=== PATIENT | male | born 1935 | race Caucasian/White ===

== ENCOUNTER 2016-11-15 13:03 | Emergency (ER) | payer MEDICARE ==
--- NOTE | 2016-11-15 13:55 | ERRECORD ---
[facility] EMERGENCY RECORD HPI URI (22:03 [facility]) CHIEF COMPLAINT: Patient presents for evaluation of nasal congestion, Patient presents for evaluation of Pt with 4 days of nasal congestion. Swollen and unable to breath through his nose. Breathes easily through his mouth. No meds taken. HISTORIAN: History provided by patient. QUALITY: Pain is dull in nature. TIME COURSE: Gradual onset of symptoms, Symptoms are worsening, are constant. ASSOCIATED WITH: No associated chest pain, No associated chills, No associated fever, No associated headache, No associated shortness of breath. EXACERBATED BY: Patient's condition exacerbated by nothing. RELIEVED BY: Patient's condition relieved by nothing. ROS (22:05 JLOY) CONSTITUTIONAL: Historian denies chills, denies fever. EYES: Historian denies eye pain, denies eye redness, denies eye discharge. ENT: Historian reports rhinorrhea, denies sinus pain, denies sore throat. RESPIRATORY: Historian denies cough, denies shortness of breath. GI: Historian denies abdominal pain, denies nausea, denies vomiting. NEUROLOGIC: Historian denies dizziness, denies headache. PAST MEDICAL HISTORY MEDICAL HISTORY: Past medical history includes vascular disease history, CEREBRAL ANEURYSM, history of hypertension, which has been treated, includes cardiac history, coronary artery disease, cardiomyopathy, congestive heart failure, Treated with a pacemaker, treated with an AICD,. (13:16 [facility]) MALE SURGICAL HISTORY: CEREBRAL COIL HERNIA ORTHO, CEREBRAL COIL, Surgical history of hernia repair, Notes INGUINAL LEFT, Surgical history of orthopedic surgery, BOTH HIPS. (13:16 [facility]) SOCIAL HISTORY: Lives at home, alone, Patient denies alcohol use, Patient denies drug use, Patient has no smoking history,. (13:16 [facility]) NOTES: Nursing records reviewed, Agree with nursing records. (22:06 JLOY) KNOWN ALLERGIES No Known Drug Allergies CURRENT MEDICATIONS (13:11 [facility]) carvedilol: TABLET : Strength - 12.5 mg : ORAL Patient Dose: 1 tab(s) Oral 2 times a day. lisinopril: TABLET : Strength - 5 mg : ORAL &a-1R&a+25V*p+0X*q4128Z*c202B*c15G*c2P*p-0X&a-25V&a+1R Name: Andrei Mora DOB: 1935 M81 MedRec: [id number] AcctNum: [id number] Prepared: SatNov 15, 2016 22:08 by Interface Page 1 of 3 pMD [facility] EMERGENCY RECORD Patient Dose: 1 tab(s) Oral once a day (in the morning). bumetanide: TABLET : Strength - 1 mg : ORAL Patient Dose: 1 tab(s) Oral 2 times a day. isosorbide mononitrate: TABLET, EXTENDED RELEASE 24 HR : Strength - 30 mg : ORAL Patient Dose: 1 tab(s) Oral once a day (in the morning). Aleve: CAPSULE : Strength - 220 mg : ORAL Patient Dose: 1 tab(s) Oral every 6 hours PRN. Calcium Citrate + D: TABLET : Strength - 315 mg-200 unit : ORAL Patient Dose: 1 tab(s) Oral once a day (in the morning). Fish Oil: CAPSULE : Strength - 300 mg : ORAL Patient Dose: 1 tab(s) Oral once a day (in the morning). B-12 DOTS: TABLET : Strength - 500 mcg : ORAL Patient Dose: 2 tab(s) Oral once a day (in the morning). folic acid: TABLET : Strength - 0.8 mg : ORAL Patient Dose: 1 tab(s) Oral once a day (in the morning). Glucosamine: TABLET : Strength - 750 mg : ORAL Patient Dose: 1 tab(s) Oral once a day (in the morning). Augmentin: TABLET : Strength - 875 mg-125 mg : ORAL Patient Dose: 1 cap(s) Oral 2 times a day (before meals).take with food. VITAL SIGNS (13:11 [facility]) VITAL SIGNS: BP: 154/74, Pulse: 67, Resp: 18, Temp: 99.6 (Oral), Pain: 0, O2 sat: 97 on Room Air, Time: 11/15/2016 13:11. PHYSICAL EXAM (22:05 [facility]) CONSTITUTIONAL: Vital signs reviewed, Patient appears non toxic, Patient alert and oriented to person, place and time. EYES: Eye exam included findings of eyelids normal to inspection, Pupils equally round and reactive to light, Conjunctiva normal. ENT: Nose exam included findings of, Bilateral turbinates edematous and boggy. Small clear drainage., Pharynx exam normal, Uvula exam normal, Tonsil exam normal. NECK: Neck exam included findings of normal range of motion, Trachea midline, no cervical adenopathy. RESPIRATORY CHEST: Respiratory exam included findings of no respiratory distress, Breath sounds clear, No wheezing, No rales, No rhonchi, Chest exam included findings of chest movement symmetrical. CARDIOVASCULAR: Cardiovascular exam included findings of heart rate regular rate and rhythm, Heart sounds normal. NEURO: Sterling coma scale 15, Neuro exam findings include patient &a-1R&a+25V*p+0X*u5628T*c202B*c15G*c2P*p-0X&a-25V&a+1R Name: Andrei Mora : 1935 M81 MedRec: [id number] AcctNum: [id number] Prepared: SatNov 15, 2016 22:08 by Interface Page 2 of 3 pMD [facility] EMERGENCY RECORD oriented to person, place and time, Speech normal. PSYCHIATRIC: Normal affect. PROBLEM LIST No recorded problems DIAGNOSIS (13:41 GERTRUDIS) FINAL: PRIMARY: ALLERGIC RHINITIS DUE TO POLLEN. PRESCRIPTION (13:40 [facility]) Flonase: SPRAY, SUSPENSION : 50 mcg : NASAL : Quantity: 2 Unit: spray(s) Route: NASAL Schedule: once a day Dispense: 1 ihaler May substitute. Refills: No Refills . NOTES: 2 sprays in each nostril once a day No Refills. DISPOSITION PATIENT: Disposition Type: Discharge, Disposition: *Discharge Home. (13:41 GERTRUDIS) Patient left the department. (13:48 EBONI) Rey: GERTRUDIS=MD Max, Kirby GOMEZBE=Valentina Chino &a-1R&a+25V*p+0X*e8832P*c202B*c15G*c2P*p-0X&a-25V&a+1R Name: Andrei Mora : 1935 M81 MedRec: [id number] AcctNum: [id number] Prepared: SatNov 15, 2016 22:08 by Interface Page 3 of 3 pMD MTDD
--- NOTE | 2016-11-15 14:02 | PICIS ---
[facility] EMERGENCY RECORD TRIAGE (SatNov 15, 2016 13:11 [facility]) TRIAGE NOTES: congestion started about 4 days. patient denies taking any medications to treat symptoms. (SatNov 15, 2016 13:11 [facility]) PATIENT: NAME: Andrei Mora, AGE: 81, GENDER: male, : Sat1935, TIME OF GREET: SatNov 15, 2016 13:04, PREFERRED LANGUAGE: Hebrew, ETHNICITY: Not or , ECODE BILLING MAP: [facility], SSN: [id number], Zip Code: [address], KG WEIGHT: 72.57, PHONE: , , , PERSON ID: [id number]. (SatNov 15, 2016 13:11 [facility]) COMPLAINT: CONGESTION MAKES IT DIFFICULT TO BREATH. (SatNov 15, 2016 13:11 [facility]) ADMISSION: URGENCY: 4 Non Urgent, ADMISSION SOURCE: Home, TRANSPORT: CAR, BED: ER -02. (SatNov 15, 2016 13:11 [facility]) ASSESSMENT: Assessment: patient is noted to sound congestion. reports that he does not know if he has had a fever. (13:16 [facility]) PAIN: No complaint of pain. (13:16 [facility]) IMMUNIZATIONS: Flu vaccine up to date, Tetanus immunization up to date, Pneumococcal vaccine up to date. (13:16 [facility]) TRIAGE SCREENING: Patient denies suicidal ideation, Patient denies presence of domestic violence. (13:16 [facility]) PROVIDERS: TRIAGE NURSE: Valentina Chino. (SatNov 15, 2016 13:11 [facility]) VITAL SIGNS: BP 154/74, Pulse 67, Resp 18, Temp 99.6, (Oral), Pain 0, O2 Sat 97, on Room Air, Time 11/15/2016 13:11. (13:11 [facility]) PREVIOUS VISIT ALLERGIES: No Known Drug Allergies. (SatNov 15, 2016 13:11 [facility]) No Known Drug Allergies. (13:16 [facility]) KNOWN ALLERGIES No Known Drug Allergies CURRENT MEDICATIONS (13:11 [facility]) carvedilol: TABLET : Strength - 12.5 mg : ORAL Patient Dose: 1 tab(s) Oral 2 times a day. lisinopril: TABLET : Strength - 5 mg : ORAL Patient Dose: 1 tab(s) Oral once a day (in the morning). bumetanide: TABLET : Strength - 1 mg : ORAL Patient Dose: 1 tab(s) Oral 2 times a day. isosorbide mononitrate: TABLET, EXTENDED RELEASE 24 HR : Strength - 30 mg : ORAL Patient Dose: 1 tab(s) Oral once a day (in the morning). Aleve: CAPSULE : Strength - 220 mg : ORAL Patient Dose: 1 tab(s) Oral every 6 hours PRN. Calcium Citrate + D: &a-1R&a+25V*p+0X*t6962T*c202B*c15G*c2P*p-0X&a-25V&a+1R Name: Andrei Mora : 1935 M81 MedRec: [id number] AcctNum: [id number] Prepared: Heidi Nov 15, 2016 22:14 by Interface Page 1 of 5 pMD [facility] EMERGENCY RECORD TABLET : Strength - 315 mg-200 unit : ORAL Patient Dose: 1 tab(s) Oral once a day (in the morning). Fish Oil: CAPSULE : Strength - 300 mg : ORAL Patient Dose: 1 tab(s) Oral once a day (in the morning). B-12 DOTS: TABLET : Strength - 500 mcg : ORAL Patient Dose: 2 tab(s) Oral once a day (in the morning). folic acid: TABLET : Strength - 0.8 mg : ORAL Patient Dose: 1 tab(s) Oral once a day (in the morning). Glucosamine: TABLET : Strength - 750 mg : ORAL Patient Dose: 1 tab(s) Oral once a day (in the morning). Augmentin: TABLET : Strength - 875 mg-125 mg : ORAL Patient Dose: 1 cap(s) Oral 2 times a day (before meals).take with food. VITAL SIGNS (13:11 [facility]) VITAL SIGNS: BP: 154/74, Pulse: 67, Resp: 18, Temp: 99.6 (Oral), Pain: 0, O2 sat: 97 on Room Air, Time: 11/15/2016 13:11. NURSING ASSESSMENT: RESPIRATORY /CHEST (13:15 [facility]) CONSTITUTIONAL: Complex assessment performed, Patient arrives ambulatory, Gait steady, History obtained from patient, Patient appears comfortable, Patient cooperative, Patient alert, Oriented to person, place and time, Skin warm, Skin dry, Skin normal in color, Mucous membranes pink, Mucous membranes moist, Patient is well-groomed, RUNNY NOSE FOR 4 DAYS. PAIN: intermittent. RESPIRATORY/CHEST: Breath sounds clear, Respiratory assessment findings include respiratory effort easy, Respirations regular, Conversing normally, Neck and chest exam findings include trachea midline, Chest expansion equal, Chest movement symmetrical, no signs of distress, no retractions noted, no associated cough noted, no associated fever. ENT: Ear assessment findings include ear normal to inspection, Nasal assessment findings include nose normal to inspection, Mouth and throat assessment findings include mouth inspection normal. NURSING PROCEDURE: DISCHARGE NOTE (13:48 [facility]) DISCHARGE: Patient discharged to home, ambulating without assistance, driving self, unaccompanied, Summary of Care printed/ provided, Discharge instructions given to patient, Simple or moderate discharge teaching performed, by VALENTINA VIZCARRA, EXPLAINED DISCHARGE INSTRUCTIONS. INSTRUCTED TO RETURN IF S/S WORSEN, Prescriptions given and instructions on side effects given, Name of prescription(s) given: FLONASE, Above person(s) verbalized understanding of discharge instructions and follow-up care, Patient &a-1R&a+25V*p+0X*k7578I*c202B*c15G*c2P*p-0X&a-25V&a+1R Name: Andrei Mora : 1935 M81 MedRec: [id number] AcctNum: [id number] Prepared: Heidi Nov 15, 2016 22:14 by Interface Page 2 of 5 pMD [facility] EMERGENCY RECORD treated and evaluated by physician. BELONGINGS: Belongings and valuables with patient upon arrival to the Emergency Department include:, Belongings and valuables with patient at time of discharge include:, boots, jacket, pants, shirt, Belongings remain with patient, Valuables remain with patient. HPI URI (22:03 [facility]) CHIEF COMPLAINT: Patient presents for evaluation of nasal congestion, Patient presents for evaluation of Pt with 4 days of nasal congestion. Swollen and unable to breath through his nose. Breathes easily through his mouth. No meds taken. HISTORIAN: History provided by patient. QUALITY: Pain is dull in nature. TIME COURSE: Gradual onset of symptoms, Symptoms are worsening, are constant. ASSOCIATED WITH: No associated chest pain, No associated chills, No associated fever, No associated headache, No associated shortness of breath. EXACERBATED BY: Patient's condition exacerbated by nothing. RELIEVED BY: Patient's condition relieved by nothing. ROS (22:05 [facility]) CONSTITUTIONAL: Historian denies chills, denies fever. EYES: Historian denies eye pain, denies eye redness, denies eye discharge. ENT: Historian reports rhinorrhea, denies sinus pain, denies sore throat. RESPIRATORY: Historian denies cough, denies shortness of breath. GI: Historian denies abdominal pain, denies nausea, denies vomiting. NEUROLOGIC: Historian denies dizziness, denies headache. PAST MEDICAL HISTORY MEDICAL HISTORY: Past medical history includes vascular disease history, CEREBRAL ANEURYSM, history of hypertension, which has been treated, includes cardiac history, coronary artery disease, cardiomyopathy, congestive heart failure, Treated with a pacemaker, treated with an AICD,. (13:16 [facility]) MALE SURGICAL HISTORY: CEREBRAL COIL HERNIA ORTHO, CEREBRAL COIL, Surgical history of hernia repair, Notes INGUINAL LEFT, Surgical history of orthopedic surgery, BOTH HIPS. (13:16 [facility]) SOCIAL HISTORY: Lives at home, alone, Patient denies alcohol use, Patient denies drug use, Patient has no smoking history,. (13:16 [facility]) NOTES: Nursing records reviewed, Agree with nursing records. (22:06 JL) PHYSICAL EXAM (22:05 J[facility]) CONSTITUTIONAL: Vital signs reviewed, Patient appears non toxic, Patient alert and oriented to person, place and time. &a-1R&a+25V*p+0X*p4517F*c202B*c15G*c2P*p-0X&a-25V&a+1R Name: Andrei Mora : 1935 M81 MedRec: [id number] AcctNum: [id number] Prepared: [facility] Nov 15, 2016 22:14 by Interface Page 3 of 5 pMD [facility] EMERGENCY RECORD EYES: Eye exam included findings of eyelids normal to inspection, Pupils equally round and reactive to light, Conjunctiva normal. ENT: Nose exam included findings of, Bilateral turbinates edematous and boggy. Small clear drainage., Pharynx exam normal, Uvula exam normal, Tonsil exam normal. NECK: Neck exam included findings of normal range of motion, Trachea midline, no cervical adenopathy. RESPIRATORY CHEST: Respiratory exam included findings of no respiratory distress, Breath sounds clear, No wheezing, No rales, No rhonchi, Chest exam included findings of chest movement symmetrical. CARDIOVASCULAR: Cardiovascular exam included findings of heart rate regular rate and rhythm, Heart sounds normal. NEURO: Nadir coma scale 15, Neuro exam findings include patient oriented to person, place and time, Speech normal. PSYCHIATRIC: Normal affect. EVENTS TRANSFER: Triage to Emergency Emergency Room -02. (SatNov 15, 2016 13:11 [facility]) Removed from Emergency Emergency Room -02. (13:49 [facility]) PROBLEM LIST No recorded problems DIAGNOSIS (13:41 JLOY) FINAL: PRIMARY: ALLERGIC RHINITIS DUE TO POLLEN. DISPOSITION PATIENT: Disposition Type: Discharge, Disposition: *Discharge Home. (13:41 JLOY) Patient left the department. (13:48 [facility]) INSTRUCTION (13:41 JLOY) DISCHARGE: NASAL ALLERGY. FOLLOWUP: Follow up with Primary Care Physician in 7-10 days. PRESCRIPTION (13:40 JLOY) Flonase: SPRAY, SUSPENSION : 50 mcg : NASAL : Quantity: 2 Unit: spray(s) Route: NASAL Schedule: once a day Dispense: 1 ihaler May substitute. Refills: No Refills . NOTES: 2 sprays in each nostril once a day No Refills. IMAGING (13:49 [facility]) *SUPPLY CHARGE SHEET: Image captured from scanner. *DISCHARGE INSTRUCTIONS RECEIPT: Image captured from scanner. ADMIN (22:06 [facility]) DIGITAL SIGNATURE: MD Santana Joshua. &a-1R&a+25V*p+0X*t5049X*c202B*c15G*c2P*p-0X&a-25V&a+1R Name: Andrei Mora : 1935 M81 MedRec: [id number] AcctNum: [id number] Prepared: SatNov 15, 2016 22:14 by Interface Page 4 of 5 pMD [facility] EMERGENCY RECORD Rey: GERTRUDIS=MD Max, Kirby LYN=Valentina Chino &a-1R&a+25V*p+0X*t8451V*c202B*c15G*c2P*p-0X&a-25V&a+1R Name: Andrei Mora : 1935 M81 MedRec: [id number] AcctNum: [id number] Prepared: SatNov 15, 2016 22:14 by Interface Page 5 of 5 pMD [facility] MEDICATION RECONCILIATION You were seen in the Emergency Department on: SatNov 15, 2016 KNOWN ALLERGIES No Known Drug Allergies HOME MEDICATIONS CONTINUE PRESCRIBED Aleve : CAPSULE : Strength - 220 mg : ORAL Continue as prescribed Patient had been takin tab(s) Oral every 6 hours PRN. Augmentin : TABLET : Strength - 875 mg-125 mg : ORAL Continue as prescribed Patient had been takin cap(s) Oral 2 times a day (before meals). Comment: take with food. B-12 DOTS : TABLET : Strength - 500 mcg : ORAL Continue as prescribed Patient had been takin tab(s) Oral once a day (in the morning). bumetanide : TABLET : Strength - 1 mg : ORAL Continue as prescribed Patient had been takin tab(s) Oral 2 times a day. Calcium Citrate + D : TABLET : Strength - 315 mg-200 unit : ORAL Continue as prescribed Patient had been takin tab(s) Oral once a day (in the morning). carvedilol : TABLET : Strength - 12.5 mg : ORAL Continue as prescribed Patient had been takin tab(s) Oral 2 times a day. Fish Oil : CAPSULE : Strength - 300 mg : ORAL Continue as prescribed Patient had been takin tab(s) Oral once a day (in the morning). &a-1R&a+25V*p+0X*j3734T*c202B*c15G*c2P*p-0X&a-25V&a+1R Name: Andrei Mora : 1935 M81 MedRec: [id number] AcctNum: [id number] Prepared: SatNov 15, 2016 22:14 by Interface pMD [facility] MEDICATION RECONCILIATION folic acid : TABLET : Strength - 0.8 mg : ORAL Continue as prescribed Patient had been takin tab(s) Oral once a day (in the morning). Glucosamine : TABLET : Strength - 750 mg : ORAL Continue as prescribed Patient had been takin tab(s) Oral once a day (in the morning). isosorbide mononitrate : TABLET, EXTENDED RELEASE 24 HR : Strength - 30 mg : ORAL Continue as prescribed Patient had been takin tab(s) Oral once a day (in the morning). lisinopril : TABLET : Strength - 5 mg : ORAL Continue as prescribed Patient had been takin tab(s) Oral once a day (in the morning). PRESCRIPTIONS (1) &a-1R&a+25V*p+0X*a5941N*c202B*c15G*c2P*p-0X&a-25V&a+1R Name: Andrei Mora : 1935 M81 MedRec: [id number] AcctNum: [id number] Prepared: Heidi Nov 15, 2016 22:14 by Interface pMD SANDI
== END 2016-11-15 13:47 | disposition home or self-care (01) ==
LOC: NAV ERS 13:03
DX: J30.1 Allergic rhinitis due to pollen (principal); I25.10 Atherosclerotic heart disease of native coronary artery without angina pectoris; I11.0 Hypertensive heart disease with heart failure; I50.9 Heart failure, unspecified
CPT/HCPCS: 99283

== ENCOUNTER 2017-01-04 18:03 | Emergency (ER) | payer MEDICARE ==
[2017-01-04 19:40] LABS: #Basophils 0.1 thou/uL (0.0-0.2); #Eosinphils 0.3 thou/uL (0.0-0.7); #Lymphocytes 1.9 thou/uL (1.20-3.40); #Monocytes 0.8 thou/uL (0.11-0.59); #Neutrophils 2.9 thou/uL (1.40-6.50); %Basophils 1.5 % (0.0-1.0); %Eosinophils 4.3 % (0.0-10.0); %Lymphocytes 31.9 % (21.0-51.0); %Monocytes 13.9 % (0.0-10.0); Mean Platelet Volume 6.8 fL (7.4-10.4); Red Blood Cell (RBC) Count 4.04 mill/uL (4.70-6.10); White Blood Cell (WBC) Count 5.9 thou/uL (4.8-10.8)
[2017-01-04 19:58] LABS: ALT (SGPT) 15 U/L (0-55); AST (SGOT) 23 U/L (5-34); Alkaline Phosphatase 94 U/L (40-150); Anion Gap 17 mmol/L (10-20); BUN (Urea Nitrogen) 20 mg/dL (8.4-25.7); Bilirubin, Total 0.4 mg/dL (0.2-1.2); Calc. Creatinine Clearance 0 mL/min (70-130); Calcium 9.1 mg/dL (7.8-10.44); Carbon Dioxide 19 mmol/L (23-31); Chloride 108 mmol/L (98-107); Estimated GFR-MDRD 32; Globulin 3.5 g/dL (2.4-3.5); Protein, Total 7.6 g/dL (5.8-8.1)
--- NOTE | 2017-01-04 21:52 | RAD ---
PORTABLE CHEST 01/04/17 PROVIDED CLINICAL HISTORY: Congestion and cough. FINDINGS: No comparisons. The cardiac silhouette is within normal limits for portable technique. Vascular calcification invol ves the aortic arch. Left subclavian cardiac pacing device is noted with the tips overlying the expe cted locations of RA, RV and coronary sinus. No focal consolidation, pleural fluid or pneumothorax a pparent. IMPRESSION: No evidence for an acute cardiopulmonary process. POS: ANDRE
== END 2017-01-04 20:08 | disposition home or self-care (01) ==
LOC: NAV ERS 18:03
DX: J30.9 Allergic rhinitis, unspecified (principal); N17.9 Acute kidney failure, unspecified; I13.0 Hypertensive heart and chronic kidney disease with heart failure and stage 1 through stage 4 chronic kidney disease, or unspecified chronic kidney disease; N18.9 Chronic kidney disease, unspecified; I50.9 Heart failure, unspecified; I25.10 Atherosclerotic heart disease of native coronary artery without angina pectoris; I42.9 Cardiomyopathy, unspecified; Z79.899 Other long term (current) drug therapy
CPT/HCPCS: 71010; 80053; 83880; 85025; 93005

== ENCOUNTER 2017-01-15 11:27 | Emergency (ER) | payer MEDICARE ==
[2017-01-15 12:00] LABS: #Basophils 0.1 thou/uL (0.0-0.2); #Eosinphils 0.3 thou/uL (0.0-0.7); #Lymphocytes 2.1 thou/uL (1.20-3.40); #Monocytes 0.7 thou/uL (0.11-0.59); #Neutrophils 3.6 thou/uL (1.40-6.50); %Basophils 1.2 % (0.0-1.0); %Eosinophils 4.2 % (0.0-10.0); %Lymphocytes 31.7 % (21.0-51.0); %Monocytes 10.1 % (0.0-10.0); %Neutrophils 52.8 % (42.0-75.0); Mean Corpuscular HGB CONC 32.1 g/dL (32.0-36.0); Mean Corpuscular Hemoglobin 32.2 pg (27.0-31.0); Mean Platelet Volume 6.6 fL (7.4-10.4); Platelet Count 188 thou/uL (130-400); RBC Distribution Width 12.4 % (11.5-14.5); Red Blood Cell (RBC) Count 4.04 mill/uL (4.70-6.10); White Blood Cell (WBC) Count 6.8 thou/uL (4.8-10.8)
[2017-01-15 12:15] LABS: ALT (SGPT) 10 U/L (0-55); AST (SGOT) 19 U/L (5-34); Albumin 3.9 g/dL (3.4-4.8); Alkaline Phosphatase 72 U/L (40-150); Anion Gap 13 mmol/L (10-20); BUN (Urea Nitrogen) 21 mg/dL (8.4-25.7); Bilirubin, Total 0.5 mg/dL (0.2-1.2); Calc. Creatinine Clearance 0 mL/min (70-130); Calcium 8.8 mg/dL (7.8-10.44); Carbon Dioxide 20 mmol/L (23-31); Chloride 110 mmol/L (98-107); Estimated GFR-MDRD 38; Globulin 3.4 g/dL (2.4-3.5); Glucose 98 mg/dL (83-110); Potassium 4.4 mmol/L (3.5-5.1); Protein, Total 7.3 g/dL (5.8-8.1); Sodium 139 mmol/L (136-145)
[2017-01-15 12:16] LABS: CKMB 2.3 ng/mL (0-6.6); Troponin I 0.039 ng/mL (< 0.028)
--- NOTE | 2017-01-15 12:23 | RAD ---
TWO VIEWS CHEST HISTORY: Syncope. COMPARISON: 01/04/2017 FINDINGS: Two views of the chest show a left-sided transvenous defibrillator, unchanged, stable atherosclerosi s, and stable cardiomegaly. The pulmonary vessels and hilum are normal. The costophrenic angles ar e clear. Chronic changes in the left lung base. No mass. No consolidation. No pneumothorax or os seous abnormalities. IMPRESSION: No acute cardiopulmonary process. POS: CARL[facility]
[2017-01-15] MEDS ORDERED: Adacel (T-DAP) 0.5 ML VIAL ONE (12:49)
[2017-01-15 12:54] LABS: INR-International Normal Ratio 1.1; Prothrombin Time 14.4 SEC (12.0-14.7)
[2017-01-15] MEDS ORDERED: Lidocaine 1% 20 ML MDV ONE (13:54)
== END 2017-01-15 17:30 | disposition short-term general hospital (02) ==
LOC: NAV ERS 11:27
DX: R55 Syncope and collapse (principal); I10 Essential (primary) hypertension; I25.10 Atherosclerotic heart disease of native coronary artery without angina pectoris; I50.9 Heart failure, unspecified; Z79.899 Other long term (current) drug therapy
CPT/HCPCS: 12001; 36415; 71020; 80053; 82553; 83880; 84484; 85025; 85610; 90471; 90715; 93005; J2001

== ENCOUNTER 2017-05-22 16:10 | Outpatient (CLI) | payer MEDICARE ==
[2017-05-22 16:27] LABS: #Basophils 0.1 thou/uL (0.0-0.2); #Eosinphils 0.3 thou/uL (0.0-0.7); #Lymphocytes 2.9 thou/uL (1.20-3.40); #Monocytes 0.5 thou/uL (0.11-0.59); #Neutrophils 3.6 thou/uL (1.40-6.50); %Basophils 0.8 % (0.0-1.0); %Eosinophils 3.8 % (0.0-10.0); %Monocytes 7.3 % (0.0-10.0); %Neutrophils 49.1 % (42.0-75.0); Hemoglobin 14.2 g/dL (14.0-18.0); Mean Corpuscular HGB CONC 32.2 g/dL (32.0-36.0); Mean Corpuscular Hemoglobin 32.5 pg (27.0-31.0); Mean Platelet Volume 5.9 fL (7.4-10.4); Platelet Count 142 thou/uL (130-400); RBC Distribution Width 12.3 % (11.5-14.5); Red Blood Cell (RBC) Count 4.37 mill/uL (4.70-6.10); White Blood Cell (WBC) Count 7.4 thou/uL (4.8-10.8)
[2017-05-22 19:39] LABS: Anion Gap 15 mmol/L (10-20); BUN (Urea Nitrogen) 37 mg/dL (8.4-25.7); Calc. Creatinine Clearance 0 mL/min (70-130); Calcium 9.5 mg/dL (7.8-10.44); Carbon Dioxide 22 mmol/L (23-31); Chloride 108 mmol/L (98-107); Estimated GFR-MDRD 37; Glucose 98 mg/dL (83-110); Phosphorus 3.6 mg/dL (2.3-4.7); Potassium 4.8 mmol/L (3.5-5.1); Sodium 140 mmol/L (136-145)
[2017-05-22 22:20] LABS: Bilirubin Negative (Negative); Blood, Urine Negative (Negative); Clarity Clear (Clear); Glucose, Urine (Dipstick) Negative (Negative); Leukocyte Negative (Negative); Nitrite Negative (Negative); Protein, Urine (Dipstick) Negative (Neg-Trace); Urobilinogen 0.2 mg/dL (0.2-1.0); pH, Urine 5.5 (5.0-9.0)
[2017-05-22 22:46] LABS: RBC/HPF None Seen HPF (0-3); Squamous Epithelial None Seen HPF (0-3); WBC/HPF None Seen HPF (0-3)
[2017-05-22 22:47] LABS: Bacteria/HPF None Seen HPF (None Seen)
[2017-05-23 18:48] LABS: Creatinine, Urine 75.37 mg/dL (63-166); Microalbumin Urine 1.5 mg/dL (0.5-50.0); Microalbumin/Creat Ratio 19.9 mg/g (Less than 30)
== END 2017-05-22 16:11 | disposition home or self-care (01) ==
LOC: NAV LAB 16:10
PROVIDERS: ATTEND Internal Medicine Nephrology
DX: N18.3 Chronic kidney disease, stage 3 (moderate) (principal)
CPT/HCPCS: 36415; 80048; 81001; 82043; 84100; 85025

== ENCOUNTER 2018-09-15 23:21 | Emergency (ER) | payer MEDICARE ==
[2018-09-16 00:02] LABS: #Basophils 0.1 thou/uL (0.0-0.2); #Eosinphils 0.2 thou/uL (0.0-0.7); #Monocytes 0.8 thou/uL (0.11-0.59); %Eosinophils 2.3 % (0.0-10.0); %Lymphocytes 22.3 % (21.0-51.0); %Monocytes 8.5 % (0.0-10.0); %Neutrophils 65.9 % (42.0-75.0); Hemoglobin 14.4 g/dL (14.0-18.0); Mean Corpuscular HGB CONC 31.7 g/dL (32.0-36.0); Mean Corpuscular Hemoglobin 32.7 pg (27.0-31.0); Mean Platelet Volume 6.9 fL (7.4-10.4); Platelet Count 148 thou/uL (130-400); RBC Distribution Width 11.4 % (11.5-14.5); White Blood Cell (WBC) Count 9.1 thou/uL (4.8-10.8)
[2018-09-16 00:15] LABS: ALT (SGPT) 16 U/L (8-55); AST (SGOT) 25 U/L (5-34); Albumin 4.4 g/dL (3.4-4.8); Alkaline Phosphatase 85 U/L (40-150); Anion Gap 16 mmol/L (10-20); BUN (Urea Nitrogen) 33 mg/dL (8.4-25.7); Bilirubin, Total 0.6 mg/dL (0.2-1.2); Calc. Creatinine Clearance 0 mL/min (70-130); Calcium 10.1 mg/dL (7.8-10.44); Carbon Dioxide 21 mmol/L (23-31); Chloride 107 mmol/L (98-107); Estimated GFR-MDRD 34; Globulin 3.8 g/dL (2.4-3.5); Glucose 107 mg/dL (83-110); Potassium 4.8 mmol/L (3.5-5.1); Protein, Total 8.2 g/dL (5.8-8.1); Sodium 139 mmol/L (136-145)
[2018-09-16 00:16] LABS: Troponin I 0.034 ng/mL (< 0.028)
--- NOTE | 2018-09-16 08:24 | RAD ---
CHEST 2 VIEWS: COMPARISON: 01/15/2017. HISTORY: Dyspnea. FINDINGS: Left-sided transvenous defibrillator with lead position, unchanged. There is atherosclerosis of the aorta. Enlarged cardiac silhouette. The pulmonary vessels and hilum are normal. Costophrenic angle s are clear. No mass or consolidation. No pneumothorax or osseous abnormalities. IMPRESSION: 1. Atherosclerosis. 2. No acute cardiopulmonary process. POS: [facility]
== END 2018-09-16 01:20 | disposition left against medical advice (07) ==
LOC: NAV ERS 23:21
DX: R07.89 Other chest pain (principal); I13.0 Hypertensive heart and chronic kidney disease with heart failure and stage 1 through stage 4 chronic kidney disease, or unspecified chronic kidney disease; I50.9 Heart failure, unspecified; R79.89 Other specified abnormal findings of blood chemistry; N18.9 Chronic kidney disease, unspecified; Z79.899 Other long term (current) drug therapy
CPT/HCPCS: 71046; 80053; 83880; 84484; 85025; 93005; 94760

== ENCOUNTER 2019-02-20 13:52 | Emergency (ER) | payer MEDICARE | END 2019-02-20 14:33 | disposition home or self-care (01) | LOC: NAV ERS 13:52 | DX: R13.10 Dysphagia, unspecified (principal); I10 Essential (primary) hypertension; M06.9 Rheumatoid arthritis, unspecified; I67.1 Cerebral aneurysm, nonruptured; I11.0 Hypertensive heart disease with heart failure; I50.9 Heart failure, unspecified; I25.10 Atherosclerotic heart disease of native coronary artery without angina pectoris; Z79.891 Long term (current) use of opiate analgesic; Z79.899 Other long term (current) drug therapy | CPT/HCPCS: 99282 ==

== ENCOUNTER 2019-05-01 19:15 | Emergency (ER) | payer MEDICARE ==
[2019-05-01] MEDS ORDERED: methylPREDNISolone Acetate 40 mg/ml Vial ONE (19:40)
== END 2019-05-01 19:56 | disposition home or self-care (01) ==
LOC: NAV ERS 19:15
DX: J01.90 Acute sinusitis, unspecified (principal); J30.9 Allergic rhinitis, unspecified; I11.0 Hypertensive heart disease with heart failure; I50.9 Heart failure, unspecified; Z79.899 Other long term (current) drug therapy
CPT/HCPCS: 96372; 99283; J1030

== ENCOUNTER 2021-02-22 09:35 | Emergency (ER) | payer MEDICARE ==
[2021-02-22 22:31] LABS: SARS-CoV-2 PCR by NAA Not Detected (NotDetected)
== END 2021-02-22 10:31 | disposition home or self-care (01) ==
LOC: NAV ERS 09:35
DX: Z20.822 Contact with and (suspected) exposure to COVID-19 (principal); I25.10 Atherosclerotic heart disease of native coronary artery without angina pectoris; M06.9 Rheumatoid arthritis, unspecified; I11.0 Hypertensive heart disease with heart failure; I50.9 Heart failure, unspecified
CPT/HCPCS: 87635; 99283; U0003; U0005